=== PATIENT | female | born 1995 | race African-American/Black ===

== ENCOUNTER 2019-03-08 06:41 | Emergency (ER) | payer MEDICAID ==
[~2019-03-08] VITALS: Ht 154.9 cm; Wt 57.0 kg
[2019-03-08] MEDS ORDERED: ONDANSETRON HCL 4MG/2ML INJ IV STA (08:20)
[2019-03-08] MEDS ORDERED: SODIUM CHLORIDE 0.9% 1,000 ML IV ONE (08:20)
[2019-03-08] MEDS ORDERED: KETOROLAC 30MG/ML VIAL IV STA (08:20)
[2019-03-08] MEDS ORDERED: MAGNESIUM/ALUMINUM HYDROXIDE/SIMETHICONE 30ML UDC PO STA (10:32)
[2019-03-08] MEDS ORDERED: DICYCLOMINE 10 MG/5 ML ORAL SYR PO STA (10:32)
[2019-03-08] MEDS ORDERED: VISCOUS LIDOCAINE 2% 15 ML UDC PO STA (10:32)
[2019-03-08 10:55] VITALS: BP 136/96
== END 2019-03-08 11:35 | disposition home or self-care (01) ==
LOC: ER 07:02
DX: K29.20 Alcoholic gastritis without bleeding (principal); F12.10 Cannabis abuse, uncomplicated; F17.210 Nicotine dependence, cigarettes, uncomplicated; F10.10 Alcohol abuse, uncomplicated; Y90.9 Presence of alcohol in blood, level not specified
CPT/HCPCS: 96361; 96374; 96375; 99284; J1885; J2405; J7030; Z7610